=== PATIENT | male | born 1975 | race Caucasian/White ===

== ENCOUNTER 2021-07-02 15:20 | Emergency (ER) | payer OTHER ==
[2021-07-02 15:30] VITALS: BMI 24.6
[2021-07-02] MEDS ORDERED: FAMOTIDINE 20 MG/50 ML IVPB 20 MG/50 ML MG IVPB ONE ×2 (15:30→15:37)
[2021-07-02] MEDS ORDERED: SODIUM CHLORIDE 1,000 ML IV STA ×2 (15:30→17:10)
[2021-07-02] MEDS ORDERED: ONDANSETRON 4 MG/2 ML VIAL IVPUSH ONE ×2 (15:30→16:56)
[2021-07-02] MEDS ORDERED: ONDANSETRON 4 MG/2 ML VIAL ONE ×2 (15:37→17:02)
[2021-07-02 15:44] LABS: EOS % 0.3 % (0-4.5)
[2021-07-02 15:59] LABS: BASO % 1.2 % (0-2.0); HEMOGLOBIN 13.7 GM/dl (11.7-16.9); LYMPH % 15.2 % (8-40); MCH 31.5 pg (25.7-33.7); MCHC 34.2 g/dl (32.0-35.9); MEAN CELL VOLUME 92.1 fl (80-96); MEAN PLT VOLUME 9.8 fl (7.5-11.1); MONO % 6.2 % (3.8-10.2); NEUT % 77.1 % (42.8-82.8); PLATELET COUNT 153 10^3/uL (134-434); RBC 4.34 M/mm3 (4.00-5.60)
[2021-07-02 16:17] LABS: ALBUMIN 4.3 g/dl (3.4-5.0); BILIRUBIN,TOTAL 1.3 mg/dl (0.2-1); CALCIUM 8.9 mg/dl (8.5-10); CREATININE 0.9 mg/dl (0.55-1.3); TOT PROT 6.8 g/dl (6.4-8.2)
[2021-07-02] MEDS ORDERED: diazePAM CARPU-JECT 10 MG/2 ML DISP.SYRIN IVPUSH ONE (16:56)
[2021-07-02] MEDS ORDERED: diazePAM CARPU-JECT 10 MG/2 ML DISP.SYRIN ONE (17:02)
[2021-07-02] MEDS ORDERED: METOCLOPRAMIDE HCL INJECTION 10 MG/2 ML VIAL IVPB ONE (18:45)
[2021-07-02] MEDS ORDERED: METOCLOPRAMIDE HCL INJECTION 10 MG/2 ML VIAL ONE (19:02)
[2021-07-02 20:53] VITALS: TEMP 97.8
[2021-07-02 22:04] VITALS: BP 110/69; PULSE 84
== END 2021-07-02 23:22 | disposition home or self-care (01) ==
LOC: FER 15:20
PROC: 3E033GC Introduction of Other Therapeutic Substance into Peripheral Vein, Percutaneous Approach (ICD-10-PCS; principal; 2021-07-02)
DX: R42 Dizziness and giddiness (principal)
CPT/HCPCS: 36415; 70450-TC; 80053; 85025; 96361; 96365; 96375; 96376; 99285-25; C9803; U0003; U0005